=== PATIENT | female | born 1975 | race Hispanic/Latino ===

== ENCOUNTER → 2023-01-18 | Day surgery (SDC) | payer BC ==
[~2023-01-18] MED LIST: FENTANYL CITRATE/PF 100MCG/2 ML INJ ONE; LACTATED RINGER'S 1,000 ML ONE; PROPOFOL IV EMULSION 10 MG/ML 20 ML VIAL ONE; WELLBUTRIN XL150 MG PO
[2023-01-18 13:53] VITALS: TEMP 97.1
[2023-01-18 14:05] VITALS: BP 125/87; PULSE 75; RESP 16; O2SAT 99
== END | disposition home or self-care (01) ==
LOC: OR 11:11
PROVIDERS: ATTEND Internal Medicine Gastroenterology
DX: K31.89 Other diseases of stomach and duodenum (principal); K29.80 Duodenitis without bleeding; G43.909 Migraine, unspecified, not intractable, without status migrainosus; M19.90 Unspecified osteoarthritis, unspecified site; Z79.899 Other long term (current) drug therapy
CPT/HCPCS: 43239; 81025; C9113; J2704; J3010; J7121